=== PATIENT | female | born 1965 | race Caucasian/White ===

== ENCOUNTER 2017-04-04 11:22 | Emergency (ER) | payer OTHER, MEDICAID ==
[~2017-04-04] VITALS: Ht 167.6 cm; Wt 81.6 kg
[~2017-04-04 11:22] MED LIST: ARIP1TAB15 PO; CLON0.1T PO; DULO60CA PO; FERR-7 PO; HYDR25TA4 PO; METH500T6 PO; OMEP20CA74 PO; OXY10CRT PO; OXYB15TA12 PO; PERCOT PO; PREG100C PO; PROP60CA8 PO; SIMV10TA84 PO; TRAZ100T2 PO
[2017-04-04 12:08] VITALS: BP 125/74
== END 2017-04-04 13:19 | disposition home or self-care (01) ==
LOC: ER 11:22
DX: S53.401A Unspecified sprain of right elbow, initial encounter (principal); Z79.899 Other long term (current) drug therapy; F17.210 Nicotine dependence, cigarettes, uncomplicated; W18.39XA Other fall on same level, initial encounter; Y93.89 Activity, other specified; Y92.89 Other specified places as the place of occurrence of the external cause; Y99.8 Other external cause status
CPT/HCPCS: 73080

== ENCOUNTER 2023-07-08 07:44 | Inpatient (IN) | payer OTHER, MEDICAID ==
[~2023-07-08] VITALS: Ht 167.6 cm; Wt 81.8 kg
[~2023-07-08 07:44] MED LIST changes: -ARIP1TAB15 PO; +ARIP1TAB63 PO; -DULO60CA PO; +DULO60CA41 PO; +METH-1181 PO; -METH500T6 PO; +PROP60CA34 PO; -PROP60CA8 PO; +SIMV10TA20 PO; -SIMV10TA84 PO; +TRAZ-228 PO; -TRAZ100T2 PO
[2023-07-08] MEDS ORDERED: SODIUM CHLORIDE 0.9% 500 ML IVB ONE (08:00)
[2023-07-08] MEDS ORDERED: ONDANSETRON HCL 4 MG/2 ML VIAL IV ONE (08:00)
[2023-07-08] MEDS ORDERED: MORPHINE SULFATE 4 MG/ML SYR/VIAL IV ONE (08:00)
[2023-07-08] MEDS ORDERED: PANTOPRAZOLE 40 MG/10 ML VIAL INJ IV ONE (08:00)
[2023-07-08 08:05] LABS: Urine Epithelial Cast None Seen /hpf (<5)
[2023-07-08 08:33] LABS: Urine Bacteria FEW /hpf (None Seen); Urine Blood Negative /uL (Negative); Urine Clarity HAZY (Clear); Urine Color Brown (Yellow); Urine Mucus FEW (None Seen); Urine Protein, UAD 1+ (Negative); Urine Specific Gravity 1.029 (1.001-1.035); Urine Urobilinogen >12.0 mg/dL (Negative); Urine WBC 9 /hpf (0 - 5); Urine pH 6.5 (5.0-8.0)
[2023-07-08 08:34] LABS: INR 1.96 (0.9-1.15); Partial Thromboplastin Time 41.3 SEC (24.5-34.5); Prothrombin Time 19.7 sec (9.3-11.8)
[2023-07-08 08:41] LABS: Alkaline Phosphatase 184 U/L (46-116); Anion Gap 3 (5-15); Blood Urea Nitrogen 8 mg/dL (9-23); Calcium 8.9 mg/dL (8.5-10.1); Carbon Dioxide 26 mmol/L (20-30); Chloride 107 mmol/L (98-107); Glucose 120 mg/dL (74-106); Potassium 4.3 mmol/L (3.5-5.1); Sodium 136 mmol/L (136-145)
[2023-07-08 08:47] LABS: BUN/Creatinine Ratio 11.3 (10.0-20.0)
[2023-07-08 08:51] LABS: Basophils # (auto) 0 10 ^3/uL (0-0.2); Basophils % (auto) 0.6 % (0.0-2.0); Eosinophils # (auto) 0 10 ^3/uL (0-0.8); Hematocrit 47.1 % (36.0-46.0); Hemoglobin 15.7 g/dL (12.2-16.2); Lymphocytes # (auto) 0.8 10 ^3/uL (0.4-5.4); Lymphocytes % (auto) 11.7 % (10.0-50.0); Mean Corpuscular Hemoglobin 30.3 pg (28.0-32.0); Mean Corpuscular Hgb Conc. 33.3 g/dL (32.0-36.0); Mean Corpuscular Volume 90.8 fL (80.0-100.0); Monocytes # (auto) 0.5 10 ^3/uL (0-1.3); Monocytes % (auto) 7.2 % (0.0-12.0); Neutrophils # (auto) 5.6 10 ^3/uL (1.6-8.6); Neutrophils % (auto) 80.5 % (37.0-80.0); Nucleated Red Blood Cells % 0.1 %; Red Blood Cells 5.19 10^6/uL (4.0-5.20)
[2023-07-08 08:53] LABS: Alanine Aminotransferase 1739 U/L (7-40)
[2023-07-08 08:57] LABS: Red Cell Distribution Width 23.6 % (11.8-14.3)
[2023-07-08 08:59] LABS: Albumin 2.9 g/dL (3.2-4.8); Aspartate Aminotransferase 2411 U/L (13-40); Bilirubin, Total 18.3 mg/dL (0.2-1.0); Total Protein 8.4 g/dL (5.7-8.2)
[2023-07-08 09:13] LABS: Lipase 29 U/L (12-53)
[2023-07-08] MEDS ORDERED: DOCUSATE SOD 100 MG CAP PO PRN (11:15)
[2023-07-08] MEDS ORDERED: MORPHINE SULFATE INJ 2 MG/ml SYRG IV PRN (11:15)
[2023-07-08] MEDS ORDERED: PATIENTS OWN MEDICATION (Trazodone Hcl 100 MG) PO SCH (14:00)
[2023-07-08 14:47] LABS: Hepatitis B Core Total AB Negative (Negative)
[2023-07-08 16:49] LABS: Hepatitis A Total Antibody Positive (Negative)
[2023-07-08 16:51] LABS: Hepatitis B Surface Antibody Negative (Negative); Hepatitis B Surface Antigen Negative (Negative)
[2023-07-08 16:58] LABS: Hepatitis C Antibody Positive (Negative)
[2023-07-08] MEDS ORDERED: PATIENTS OWN MEDICATION (Hydrochlorothiazide 25 MG) PO SCH (22:00)
[2023-07-08] MEDS ORDERED: PATIENTS OWN MEDICATION (Duloxetine Hcl (Cymbalta) 60 MG) PO SCH (22:00)
[2023-07-08] MEDS ORDERED: PROPRANOLOL HCL 10 MG PO SCH (22:00)
[2023-07-09] MEDS: ONDANSETRON HCL 4 MG/2 ML VIAL IV PRN ×2 (00:05→06:39)
[2023-07-09] MEDS: DULoxetine HCL 30 MG CAP PO SCH ×2 (00:21→12:06)
[2023-07-09] MEDS: hydroCHLOROthiazide 25 MG TAB PO SCH ×2 (00:22→12:06)
[2023-07-09] MEDS: PROPRANOLOL HCL 20 MG TAB PO SCH ×2 (00:23→12:05)
[2023-07-09] MEDS: cloNIDine HCL 0.1 MG TAB PO SCH ×2 (00:23→12:08)
[2023-07-09] MEDS: Aripiprazole 30 MG PO SCH ×2 (00:24→10:00)
[2023-07-09] MEDS: traZODone HCL 50 MG TAB PO SCH ×3 (00:24→06:00)
[2023-07-09] MEDS: metroNIDAZOLE 500MG/100ML 100 ML IV SCH ×3 (00:31→06:17)
[2023-07-09 01:40] VITALS: PULSE 97; RESP 20; O2SAT 97
[2023-07-09] MEDS ORDERED: dilTIAZem 25 MG/5 ML VIAL IV ONE (05:15)
[2023-07-09 08:57] LABS: Basophils # (auto) 0 10 ^3/uL (0-0.2)
[2023-07-09 09:02] LABS: Chloride 108 mmol/L (98-107); Potassium 4.1 mmol/L (3.5-5.1); Sodium 138 mmol/L (136-145)
[2023-07-09 09:05] LABS: Hemoglobin 17.2 g/dL (12.2-16.2); Red Blood Cells 5.69 10^6/uL (4.0-5.20)
[2023-07-09 09:06] LABS: Anion Gap 12 (5-15); Calcium 9.2 mg/dL (8.5-10.1); Carbon Dioxide 18 mmol/L (20-30)
[2023-07-09 09:07] LABS: Basophils % (auto) 0.4 % (0.0-2.0); Eosinophils # (auto) 0 10 ^3/uL (0-0.8); Eosinophils % (auto) 0.1 % (0.0-7.0); Hematocrit 51.3 % (36.0-46.0); Lymphocytes # (auto) 0.9 10 ^3/uL (0.4-5.4); Mean Corpuscular Hemoglobin 30.2 pg (28.0-32.0); Mean Corpuscular Hgb Conc. 33.5 g/dL (32.0-36.0); Mean Corpuscular Volume 90.3 fL (80.0-100.0); Monocytes # (auto) 0.4 10 ^3/uL (0-1.3); Monocytes % (auto) 9.2 % (0.0-12.0); Neutrophils # (auto) 3.1 10 ^3/uL (1.6-8.6); Neutrophils % (auto) 70.3 % (37.0-80.0); Nucleated Red Blood Cells % 0.4 %; White Blood Cell 4.4 10^3/uL (4.4-10.8)
[2023-07-09 09:11] LABS: Alkaline Phosphatase 168 U/L (46-116); Glucose 92 mg/dL (74-106)
[2023-07-09 09:12] LABS: Albumin 2.8 g/dL (3.2-4.8); BUN/Creatinine Ratio 16.7 (10.0-20.0); Blood Urea Nitrogen 17 mg/dL (9-23)
[2023-07-09 09:14] LABS: Aspartate Aminotransferase 1344 U/L (13-40); Total Protein 8.2 g/dL (5.7-8.2)
[2023-07-09 09:26] LABS: Alanine Aminotransferase 1416 U/L (7-40)
[2023-07-09 10:00] VITALS: BP 121/66; PULSE 110; RESP 20; TEMP 97.4; O2SAT 96
[2023-07-09] MEDS ORDERED: FERROUS SULFATE 325mg EC TAB PO SCH (10:00)
[2023-07-09] MEDS ORDERED: PANTOPRAZOLE 40 MG/10 ML VIAL INJ IV SCH (10:00)
[2023-07-09] MEDS ORDERED: levoFLOXacin 500MG 100 ML IV SCH (10:00)
[2023-07-09] MEDS ORDERED: PATIENTS OWN MEDICATION (Ferrous Sulfate (Iron) 325 MG) PO SCH (10:00)
[2023-07-09 10:37] LABS: Anisocytosis Slight; Platelet Estimate Decreased
[2023-07-09 10:40] LABS: Giant Platelets Few
[2023-07-09] MEDS ORDERED: phytonadione 10 MG in SODIUM CHL 0.9% 50 ML IV ONE (11:45)
[2023-07-09] MEDS ORDERED: URSODIOL 300 MG CAP PO SCH (11:48)
[2023-07-09 13:19] VITALS: BP 121/66; PULSE 123; RESP 20; TEMP 97.4; O2SAT 96
[2023-07-09] MEDS ORDERED: cefTRIAXone 1GM/50ML D5W 50 ML IV SCH (13:38)
[2023-07-09] MEDS ORDERED: cefTRIAXone 1GM/50ML D5W 50 ML IV ONE (14:00)
[2023-07-09] MEDS ORDERED: methylPREDNISolone SOD SUCC 40 MG/ML VL IV SCH (14:00)
[2023-07-09] MEDS ORDERED: PREGABALIN 25 MG CAP PO SCH (14:00)
[2023-07-09 14:40] LABS: Base Excess -19.7 mmol/L (-2.0-2.0)
[2023-07-09] MEDS ORDERED: SODIUM BICARBONATE 8.4% INJ 50ML SYRINGE ONE (15:03)
[2023-07-09] MEDS ORDERED: LACTULOSE 20Gm/30ML SOLN PO SCH (22:00)
[2023-07-09] MEDS ORDERED: ATORVASTATIN 20 MG TAB PO SCH (22:00)
[2023-07-09] MEDS ORDERED: OXYBUTYNIN CHL 5 MG TAB PO SCH (22:00)
[2023-07-10] MEDS ORDERED: SODIUM BICARBONATE 8.4% INJ 50ML SYRINGE IV ONE (06:39)
[2023-07-10] MEDS ORDERED: EPINEPHrine HCL 1 MG/10 ML SYRG IV ONE (06:39)
[2023-07-10] MEDS ORDERED: cefTRIAXone 1GM/50ML D5W 50 ML IV SCH (09:00)
[2023-07-10] MEDS ORDERED: FUROSEMIDE 20 MG/2 ML VIAL IV SCH (10:00)
[2023-07-10] MEDS ORDERED: PANTOPRAZOLE 40 MG TAB PO SCH (10:00)
[2023-07-10] MEDS ORDERED: SPIRONOLACTONE 25 MG TAB PO SCH (10:00)
== END 2023-07-10 06:40 | DRG 432 ==
LOC: EDBD 07:44 → ER 07:44 → TELE-WESTW 11:18 → TELE 11:18 → TELE-WESTW 07-09 09:22
PROVIDERS: ADMIT Internal Medicine Pulmonary Disease; ATTEND Internal Medicine Pulmonary Disease
PROC: 5A12012 Performance of Cardiac Output, Single, Manual (ICD-10-PCS; principal; 2023-07-08)
DX: K74.60 Unspecified cirrhosis of liver (principal); K72.00 Acute and subacute hepatic failure without coma; K83.1 Obstruction of bile duct; E44.1 Mild protein-calorie malnutrition; N39.0 Urinary tract infection, site not specified; R18.8 Other ascites; D68.9 Coagulation defect, unspecified; E87.21 Acute metabolic acidosis; E78.5 Hyperlipidemia, unspecified; Z68.23 Body mass index [BMI] 23.0-23.9, adult; F17.210 Nicotine dependence, cigarettes, uncomplicated; F31.9 Bipolar disorder, unspecified; G89.29 Other chronic pain; I10 Essential (primary) hypertension; M25.511 Pain in right shoulder; K21.9 Gastro-esophageal reflux disease without esophagitis; K29.80 Duodenitis without bleeding; D69.59 Other secondary thrombocytopenia; F41.9 Anxiety disorder, unspecified; D18.03 Hemangioma of intra-abdominal structures; K76.82 Hepatic encephalopathy; K75.4 Autoimmune hepatitis; D63.8 Anemia in other chronic diseases classified elsewhere; Z82.49 Family history of ischemic heart disease and other diseases of the circulatory system; Z88.1 Allergy status to other antibiotic agents; K80.20 Calculus of gallbladder without cholecystitis without obstruction
CPT/HCPCS: 36415; 36600; 74176; 76705; 80053; 81001; 82140; 82805; 83690; 85025; 85610; 85730; 86704; 86706; 86708; 86803; 87340; 92950; 96374; 96375; C9113; G0378; J2405; J3430; J3490